=== PATIENT | female | born 1990 | race Native Hawaiian/Other Pacific Islander ===

== ENCOUNTER 2018-11-05 12:51 | Emergency (ER) | payer OTHER ==
[2018-11-05 12:55] VITALS: BP 137/84; PULSE 85; RESP 17; TEMP 98.3; O2SAT 100
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
== END 2018-11-05 15:34 | disposition home or self-care (01) ==
LOC: H.ER 12:51
DX: S09.90XA Unspecified injury of head, initial encounter (principal); S06.0X0A Concussion without loss of consciousness, initial encounter; V49.59XA Passenger injured in collision with other motor vehicles in traffic accident, initial encounter